=== PATIENT | female | born 1975 | race African-American/Black ===

== ENCOUNTER 2017-02-01 19:24 | Emergency (ER) | payer SELFPAY ==
--- NOTE | 2017-02-01 22:37 | ER Document Report ---
ED Medical Screen (RME) - General Chief Complaint: Foreign Body in Vagina Stated Complaint: VAGINAL ISSUE Mode of Arrival: Ambulatory Information source: Patient Notes: Patient presents to the emergency department with complaints of tampon stuck since Wednesday. She also reports neck pain on and off for the past couple months. She reports her neck was bothering her so much today that she couldn't work. TRAVEL OUTSIDE OF THE [place] IN LAST 30 DAYS: No - Related Data Allergies/Adverse Reactions: morphine [Morphine] Allergy (Verified 11/06/15 13:50) tramadol [Tramadol] Adverse Reaction (Verified 11/06/15 13:50) tramadol HCl [From Ultram] Adverse Reaction (Verified 11/06/15 13:50) Past Medical History Pulmonary Medical History: Reports: Hx Bronchitis Neurological Medical History: Reports: Hx Migraine Renal/ Medical History: Reports: Hx Kidney Stones. Denies: Hx Peritoneal Dialysis GI Medical History: Reports: Hx Gastroesophageal Reflux Disease Psychiatric Medical History: Reports: Hx Anxiety, Hx Depression Past Surgical History: Reports: Hx Section - x1, Hx Gynecologic Surgery - btl, Hx Inguinal Hernia, Hx Neurologic Surgery - pituitary tumor non cancer, Hx Oral Surgery, Hx Tubal Ligation - Immunizations Immunizations up to date: No Hx Diphtheria, Pertussis, Tetanus Vaccination: Yes Physical Exam - Vital signs Vitals: Temp Pulse BP Pulse Ox 98.6 F 90 144/92 H 94 02/01/17 20:34 02/01/17 20:34 02/01/17 20:34 02/01/17 20:34 Course - Vital Signs Vital signs: Temp Pulse Resp BP Pulse Ox 98.6 F 90 144/92 H 94 02/01/17 20:34 02/01/17 20:34 02/01/17 20:34 02/01/17 20:34
--- NOTE | 2017-02-02 01:06 | ER Document Report ---
HPI - HPI Patient complains to provider of: tampon stuck in vagina Onset: Other - wednesday Onset/Duration: Persistent Pain Level: 4 Context: Patient presents emergency department with reports that she has had a tampon stuck in her vagina since Wednesday. Patient also complains of neck pain pain with movement. She reports that she's had this neck pain on off for the last couple months. Denies trauma. Reports it hurt so bad today she could not go to work. Denies other symptoms such as fever vomiting diarrhea. Associated Symptoms: None Exacerbated by: Movement Relieved by: Denies Similar symptoms previously: Yes Recently seen / treated by doctor: No - REPRODUCTIVE LMP: now Reproductive: DENIES: : - DERM Skin Color: Normal Past Medical History - General Information source: Patient Last Menstrual Period: last week - Social History Smoking Status: Current Every Day Smoker Cigarette use (# per day): Yes Chew tobacco use (# tins/day): No Frequency of alcohol use: None Drug Abuse: None Occupation: [employer] Lives with: Family Family History: Arthritis, CAD, DM, Hyperlipidemia, Hypertension, Thyroid Disfunction Patient has suicidal ideation: No Patient has homicidal ideation: No Pulmonary Medical History: Reports: Hx Bronchitis Neurological Medical History: Reports: Hx Migraine Renal/ Medical History: Reports: Hx Kidney Stones. Denies: Hx Peritoneal Dialysis GI Medical History: Reports: Hx Gastroesophageal Reflux Disease Psychiatric Medical History: Reports: Hx Anxiety, Hx Depression Past Surgical History: Reports: Hx Section - x1, Hx Gynecologic Surgery - btl, Hx Inguinal Hernia, Hx Neurologic Surgery - pituitary tumor non cancer, Hx Oral Surgery, Hx Tubal Ligation - Immunizations Immunizations up to date: No Hx Diphtheria, Pertussis, Tetanus Vaccination: Yes Vertical Provider Document - CONSTITUTIONAL Agree With Documented VS: Yes Exam Limitations: No Limitations General Appearance: WD/WN, No Apparent Distress - INFECTION CONTROL TRAVEL OUTSIDE OF THE [place] IN LAST 30 DAYS: No - HEENT HEENT: Atraumatic, Normocephalic - NECK Neck: Normal Inspection - No obvious injury no erythema warmth or swelling good distal movement and sensation no weakness. negative: Lymphadenopathy-Left, Lymphadenopathy-Right - RESPIRATORY Respiratory: Breath Sounds Normal, No Respiratory Distress O2 Sat by Pulse Oximetry: 94 - CARDIOVASCULAR Cardiovascular: Regular Rate - GI/ABDOMEN Gastrointestinal: Abdomen Soft, Abdomen Non-Tender - REPRODUCTIVE Female Genitalia: Normal Inspection - MUSCULOSKELETAL/EXTREMETIES Musculoskeletal/Extremeties: ESSIE MAY - NEURO Level of Consciousness: Awake, Alert Motor/Sensory: No Motor Deficit - DERM Integumentary: Warm, Dry, No Rash Course - Re-evaluation Re-evalutation: 02/02/17 Patient was instructed that no foreign body was noted during her pelvic exam but she is to monitor symptoms such as vaginal discharge pain fever. She was instructed to return the emergency department should the symptoms began. She was also instructed to follow up with her primary care provider or [facility] for recheck. Patient was also instructed on her cervical muscle strain. She reports that she works at the [employer] and is frequently looking down at the [employer] register. She's been working there for 4 months. This pain started approximately 2 months ago. Patient was instructed on ergonomics and importance of proper posture. She verbalized understanding to all instructions. - Vital Signs Vital signs: Temp Pulse Resp BP Pulse Ox 98.6 F 90 144/92 H 94 02/01/17 20:34 02/01/17 20:34 02/01/17 20:34 02/01/17 20:34 Procedures - Pelvic Exam Pelvic exam Cultures obtained: No Wet prep obtained: No Herpes culture obtained: No Foreign body removed: No Bimanual exam performed: Yes Discharge - Discharge Clinical Impression: Neck pain, acute, Elevated blood pressure reading Condition: Stable Disposition: HOME, SELF-CARE Instructions: Neck Injury (Cervical Strain) ([facility]), Oral Narcotic Medication ( [facility]), Ibuprofen (General) ([facility]), Muscle Relaxers ([facility]) Additional Instructions: *You have been evaluated for neck pain *Rest/ alternate ice and warm packs to neck *Follow up with a primary care provider within one week for recheck *Adjust your workplace to ensure it is ergonomically appropriate for you *Take medication as prescribed *Return to ED for worsening condition, changes, needs Prescriptions: Cyclobenzaprine HCl [Flexeril 5 mg Tablet] 5 mg PO TID #15 tablet Ibuprofen [Motrin 800 mg Tablet] 800 mg PO TID #30 tablet Forms: Elevated Blood Pressure, Return to Work
[2017-02-02] MEDS ORDERED: HYDROCODONE/ACETAMINOPHEN 5-325 MG 6 TAB/DSPK PO PRN (01:33)
[2017-02-02 02:20] VITALS: BP 137/92
== END 2017-02-02 02:00 | disposition home or self-care (01) ==
LOC: ER 19:24
DX: M54.2 Cervicalgia (principal); R03.0 Elevated blood-pressure reading, without diagnosis of hypertension; T19.2XXA Foreign body in vulva and vagina, initial encounter; F17.210 Nicotine dependence, cigarettes, uncomplicated
CPT/HCPCS: 99283

== ENCOUNTER 2017-02-25 11:43 | Emergency (ER) | payer SELFPAY ==
--- NOTE | 2017-02-25 12:30 | ER Document Report ---
ED GI/ - General Time seen by provider: 12:27 Mode of Arrival: Ambulatory Information source: Patient TRAVEL OUTSIDE OF THE [place] IN LAST 30 DAYS: No - HPI Onset: Other - see HPI note Associated symptoms: Dysuria, Urinary frequency Similar symptoms previously: Yes Recently seen / treated by doctor: No - General Chief Complaint: Pain With Urination Stated Complaint: PAINFUL AND FREQUENT URINATION Notes: Patient has a 41-year-old female presenting to the emergency department with complaints of painful and frequent urination. Patient states she took a home urine test and believes that she has bacterial vaginosis. Patient has had a UTI in the past but not for multiple years. Patient states her legs also hurt. Patient has had these symptoms for 3 weeks now. Patient does not have a primary care physician. (JULI SOTO) - Related Data Allergies/Adverse Reactions: morphine [Morphine] Allergy (Verified 02/25/17 12:27) tramadol [Tramadol] Adverse Reaction (Verified 02/25/17 12:27) tramadol HCl [From Ultram] Adverse Reaction (Verified 02/25/17 12:27) Past Medical History - General Information source: Patient - Social History Smoking Status: Unknown if Ever Smoked Family History: Arthritis, CAD, DM, Hyperlipidemia, Hypertension, Thyroid Disfunction Patient has suicidal ideation: No Patient has homicidal ideation: No Pulmonary Medical History: Reports: Hx Bronchitis Neurological Medical History: Reports: Hx Migraine Renal/ Medical History: Reports: Hx Kidney Stones GI Medical History: Reports: Hx Gastroesophageal Reflux Disease Psychiatric Medical History: Reports: Hx Anxiety, Hx Depression Past Surgical History: Reports: Hx Section - x1, Hx Gynecologic Surgery - btl, Hx Inguinal Hernia, Hx Neurologic Surgery - pituitary tumor non cancer, Hx Oral Surgery, Hx Tubal Ligation - Immunizations Immunizations up to date: No Hx Diphtheria, Pertussis, Tetanus Vaccination: Yes Review of Systems - Review of Systems Constitutional: No symptoms reported EENT: No symptoms reported Cardiovascular: No symptoms reported Respiratory: No symptoms reported Gastrointestinal: No symptoms reported Genitourinary: See HPI, Burning, Frequency Female Genitourinary: See HPI, Vaginal discharge Musculoskeletal: No symptoms reported Skin: No symptoms reported Hematologic/Lymphatic: No symptoms reported Neurological/Psychological: No symptoms reported -: Yes All other systems reviewed and negative Physical Exam - Vital signs Interpretation: Normal - General General appearance: Appears well, Alert In distress: Mild - HEENT Head: Normocephalic, Atraumatic Eyes: Normal Pupils: PERRL Mucous membranes: Moist - Respiratory Respiratory status: No respiratory distress Chest status: Nontender Breath sounds: Normal Chest palpation: Normal - Cardiovascular Rhythm: Regular Heart sounds: Normal auscultation Murmur: No - Abdominal Inspection: Normal Distension: No distension Bowel sounds: Normal Tenderness: Nontender Organomegaly: No organomegaly - Back Back: Normal, Nontender - Extremities General upper extremity: Normal inspection, Normal ROM, Normal strength General lower extremity: Normal inspection, Normal ROM, Normal strength - Neurological Neuro grossly intact: Yes Cognition: Normal Orientation: AAOx4 [place] Coma Scale Eye Opening: Spontaneous [place] Coma Scale Verbal: Oriented [place] Coma Scale Motor: Obeys Commands [facility] [place] Coma Scale Total: 15 Speech: Normal - Psychological Associated symptoms: Normal affect, Normal mood - Skin Skin Temperature: Warm Skin Moisture: Dry Course - Re-evaluation Re-evalutation: 02/25/17 13:12 Patient presents emergency Department with dysuria. Said she thinks she has another urinary tract infection. Has a 2 to touch can't be she sexually active but not denies any vaginal discharge gonorrhea or chlamydia. She said she's had bacterial vaginosis in the past and it smells like that. On exams well-appearing nontoxic no acute distress no acute abdominal findings guarding rebound rigidity or flank tenderness urinalysis negative for infection when ahead and treat her for bacterial vaginosis of health department and discussed reasons for ED return sooner no emergent need for CT scan or further testing at this time. 02/25/17 13:21 (MARY MONTESINOS) - Vital Signs Vital signs: Temp Pulse Resp BP Pulse Ox 98.0 F 85 14 125/80 100 02/25/17 13:24 02/25/17 13:24 02/25/17 13:24 02/25/17 13:24 02/25/17 13:24 - Laboratory Laboratory results interpreted by me: 02/25/17 12:35 Urine Blood MODERATE H Discharge - Discharge Clinical Impression: Dysuria, history of bacterial vaginosis Condition: Stable Disposition: HOME, SELF-CARE Additional Instructions: You are experiencing burning with urination and order with history of bacterial vaginosis. Treatment she will or bacterial vaginosis. We will need you to follow up with the health department your urine is negative for infection. Prescriptions: Metronidazole [Flagyl 500 mg Tablet] 500 mg PO Q6H #28 tablet Scribe Attestation: 02/25/17 13:11 I personally performed the services described in the documentation reviewed the documentation recorded by my scribe in my presence and it accurately and completely records my words and actions (MARY MONTESINOS) Scribe Documentation - Scribe Written by Scribe:: Juli Soto 02/25/17 13:30 acting as scribe for :: Horace
[2017-02-25 12:46] LABS: APPEARANCE,URINE CLEAR; BILIRUBIN,URINE NEGATIVE (NEGATIVE); GLUCOSE, URINE NEGATIVE (NEGATIVE); KETONES,URINE NEGATIVE (NEGATIVE); LEUKOCYTE ESTERASE,URINE NEGATIVE (NEGATIVE); NITRITE,URINE NEGATIVE (NEGATIVE); PROTEIN,URINE NEGATIVE (NEGATIVE); URINE SPECIFIC GRAVITY 1.003; UROBILINOGEN,URINE NEGATIVE mg/dL (<2.0)
[2017-02-25 13:27] VITALS: BP 125/80
== END 2017-02-25 13:26 | disposition home or self-care (01) ==
LOC: ER 11:43
DX: R30.0 Dysuria (principal); R35.0 Frequency of micturition
CPT/HCPCS: 81001; 81025; 99283

== ENCOUNTER 2017-10-14 10:22 | Emergency (ER) | payer SELFPAY ==
--- NOTE | 2017-10-14 11:20 | ER Document Report ---
ED General - General Chief Complaint: Pain With Urination Stated Complaint: URINARY PROBLEMS Time Seen by Provider: 10/14/17 11:15 Mode of Arrival: Ambulatory Information source: Patient Notes: Patient is a 41-year-old female who presents with 2 week history of dysuria, urinary frequency and vaginal discharge that she describes as thin and watery. She endorses associated backache and lower abdominal pain but denies any fever or chills, nausea, vomiting, diarrhea. She denies any abnormal vaginal bleeding. States her last menstrual period was 2 weeks ago and these are normal in nature. She has tried Azo for 4 days which she states helps while she is taking it but when she stops the discomfort returns. She has tried Tylenol and Motrin with no relief. Does have a history of bacterial vaginosis and states this feels the same. TRAVEL OUTSIDE OF THE [place] IN LAST 30 DAYS: No - Related Data Allergies/Adverse Reactions: morphine [Morphine] Allergy (Verified 10/14/17 10:23) tramadol [Tramadol] Adverse Reaction (Verified 10/14/17 10:23) tramadol HCl [From Ultram] Adverse Reaction (Verified 10/14/17 10:23) Past Medical History - Social History Smoking Status: Current Every Day Smoker Chew tobacco use (# tins/day): No Frequency of alcohol use: Occasional Drug Abuse: None Family History: Arthritis, CAD, DM, Hyperlipidemia, Hypertension, Thyroid Disfunction Patient has suicidal ideation: No Patient has homicidal ideation: No Pulmonary Medical History: Reports: Hx Bronchitis Neurological Medical History: Reports: Hx Migraine Renal/ Medical History: Reports: Hx Kidney Stones. Denies: Hx Peritoneal Dialysis GI Medical History: Reports: Hx Gastroesophageal Reflux Disease Psychiatric Medical History: Reports: Hx Anxiety, Hx Depression Past Surgical History: Reports: Hx Section - x1, Hx Gynecologic Surgery - btl, Hx Inguinal Hernia, Hx Neurologic Surgery - pituitary tumor non cancer, Hx Oral Surgery, Hx Tubal Ligation - Immunizations Immunizations up to date: No Hx Diphtheria, Pertussis, Tetanus Vaccination: Yes Review of Systems - Review of Systems Constitutional: See HPI EENT: No symptoms reported Cardiovascular: No symptoms reported Respiratory: No symptoms reported Gastrointestinal: No symptoms reported Genitourinary: See HPI Female Genitourinary: See HPI Musculoskeletal: No symptoms reported Skin: No symptoms reported Hematologic/Lymphatic: No symptoms reported Neurological/Psychological: No symptoms reported Physical Exam - Vital signs Vitals: Temp Pulse Resp BP Pulse Ox 97.9 F 85 16 147/94 H 100 10/14/17 10:47 10/14/17 10:47 10/14/17 10:47 10/14/17 10:47 10/14/17 10:47 - Notes Notes: PHYSICAL EXAM: CONSTITUTIONAL: Alert and oriented, well-appearing and in no acute distress. HENT: Normocephalic, atraumatic. Oropharynx clear without erythema, tonsilar exudate or malocclusion. Trachea midline. Uvula midline. Moist mucous membranes. EYES: Pupils equal round and reactive to light, EOM intact. Sclera anicteric, conjunctiva are normal. No entrapment. NECK: supple without lymphadenopathy. No midline tenderness or paraspinous muscle spasms. HEART: Regular rate and rhythm without murmurs. LUNGS: CTAB and equal. No wheezes, rales or rhonchi. GI: Normactive bowel sounds. TTP in suprapubic region, non-distended. No organomegaly. no CVAT. Negative Dickinson sign, negative McBurney's point tenderness. No rebound or guarding. No CVAT. MANAGER SURGERY: External exam normal. No rashes or lesions. Mild thin vaginal discharge, no vaginal bleeding. Cervix without lesions. No cervical motion tenderness. BACK: nontender, no paraspinous spasm. EXTREMITIES: Normal range of motion, no pitting edema. No cyanosis. Cap Refill < 3 seconds. NEURO: Cranial nerves grossly intact. Normal sensory/motor exams. PSYCH: Normal mood, normal affect. SKIN: Warm and dry. Normal turgor. No rashes or lesions noted. Course - Re-evaluation Re-evalutation: 10/14/17 12:37 Patient seen and examined. Patient is alert and oriented and speaking in full sentences without difficulty. She is afebrile and well-hydrated. Abdominal exam nonsurgical. No CVA tenderness. Pelvic exam without copious discharge. Wet prep shows 1+ WBC and no trichomonas. Gonorrhea and chlamydia pending. Patient was treated for gonorrhea and chlamydia per her request. Urinalysis did not show any signs of infectious. Patient states she has had bacterial vaginosis in the past and this feels similar so she will be treated accordingly. She will also be given a prescription for Pyridium. Low suspicion at this time for pyelonephritis, nephrolithiasis, sepsis or any other emergent condition at this time. At this time, will discharge with return precautions and follow-up recommendations. Verbal discharge instructions given at the bedside and opportunity for questions given. Medication warnings reviewed. Patient is in agreement with this plan and has verbalized understanding of return precautions and the need for primary care follow-up in the next 24-72 hours. - Vital Signs Vital signs: Temp Pulse Resp BP Pulse Ox 97.9 F 85 16 147/94 H 100 10/14/17 10:47 10/14/17 10:47 10/14/17 10:47 10/14/17 10:47 10/14/17 10:47 - Laboratory Laboratory results interpreted by me: 10/14/17 10:50 Urine Urobilinogen 2.0 H Procedures - Pelvic Exam Pelvic exam Cultures obtained: Yes Wet prep obtained: Yes Herpes culture obtained: No POC sent to lab: Yes Foreign body removed: No Witnessed by: tech Notes: 10/14/17 13:39 no vaginal bleeding, scant vaginal discharge Discharge - Discharge Clinical Impression: Bacterial vaginosis, Urinary frequency, Dysuria Condition: Stable Disposition: HOME, SELF-CARE Additional Instructions: VAGINITIS: Your exam shows that you have vaginitis, a vaginal infection. The infection can be caused by a many different organisms, including trichomonas or Gardnerella. The usual symptoms are vaginal irritation and discharge. The treatment is usually antibiotics such as Flagyl. Laboratory tests can determine which germ is responsible. Use the medication as prescribed. Because this infection can be transmitted sexually, your sexual partner may need to be checked and treated also. If your physician has not discussed this with you, please check before resuming sexual relations. If a culture shows gonorrhea or chlamydia, the infection must be reported to the health department. Call the doctor if you develop pelvic pain, fever, or problems with urination, or if you don't improve as expected. VAGINOSIS, BACTERIAL: Your exam shows you have bacterial vaginosis. This condition is due to an overgrowth of bacteria in the vagina. Symptoms may include vaginal itching or pain, a smelly discharge, and sometimes burning with urination. Normally this is not transmitted by sexual contact. Vaginosis can be treated with oral or topical antibiotics. Metronidazole ( Flagyl) pills are usually effective. Topical vaginal creams include Cleocin and Metro-Gel. You should avoid sexual contact until your symptoms are all better. Call the doctor if you develop pelvic pain, fever, or problems with urination, or if you don't improve as expected. ANTIBIOTIC THERAPY: You have been given an antibiotic prescription. It's important that you take all the medication, unless instructed otherwise by your physician. Failure to complete the entire course can result in relapse of your condition. Common side effects of antibiotics include nausea, intestinal cramping, or diarrhea. Women may develop vaginal yeast infections, and babies can get yeast (thrush) in the mouth following the use of antibiotics. Contact your physician if you develop significant side effects from this medication. Allergy to this antibiotic can result in hives, wheezing, faintness, or itching. If symptoms of allergy occur, stop the medication and call the doctor. METRONIDAZOLE: Metronidazole (Flagyl) has been prescribed. This medication is used to kill a type of bacteria called anaerobes, and protozoan parasites such as trichomonas and Giardia. Flagyl often causes a metallic taste in the mouth and mild nausea. Do not use alcohol in any form with Flagyl (including alcohol in medication elixirs). Flagyl interacts with alcohol to cause flushing, palpitations, headache, stomach cramps, and vomiting. Do not use Flagyl if you are taking Antabuse (disulfiram). Call the doctor at once if you develop rash, shortness of breath, itching, or lightheadedness. FOLLOW-UP CARE: If you have been referred to a physician for follow-up care, call the physician s office for an appointment as you were instructed or within the next two days. If you experience worsening or a significant change in your symptoms, notify the physician immediately or return to the Emergency Department at any time for re-evaluation. Prescriptions: Metronidazole 500 mg PO BID 7 Days tablet Phenazopyridine HCl [Pyridium] 100 mg PO BID #10 tablet
[2017-10-14 11:52] LABS: APPEARANCE,URINE CLEAR; BILIRUBIN,URINE NEGATIVE (NEGATIVE); GLUCOSE, URINE NEGATIVE (NEGATIVE); KETONES,URINE NEGATIVE (NEGATIVE); LEUKOCYTE ESTERASE,URINE NEGATIVE (NEGATIVE); NITRITE,URINE NEGATIVE (NEGATIVE); PROTEIN,URINE NEGATIVE (NEGATIVE)
[2017-10-14] MEDS ORDERED: AZITHROMYCIN 200 MG/5 ML SUSP 30 ML PO ONE (13:08)
[2017-10-14] MEDS ORDERED: LIDOCAINE 1% INJ-PF (10 MG/ML) 30 ML SDV INFIL ONE (13:09)
[2017-10-14] MEDS ORDERED: CEFTRIAXONE INJ 250 MG VIAL IM ONE (13:09)
[2017-10-14 13:57] VITALS: BP 145/94
== END 2017-10-14 13:57 | disposition home or self-care (01) ==
LOC: ER 10:22
DX: N76.0 Acute vaginitis (principal); B96.89 Other specified bacterial agents as the cause of diseases classified elsewhere; R30.0 Dysuria; R35.0 Frequency of micturition; F17.200 Nicotine dependence, unspecified, uncomplicated; Z88.5 Allergy status to narcotic agent
CPT/HCPCS: 99283; 96372; 87210; 81001; 87491; 87591; J3490; J0696; Q0144

== ENCOUNTER 2018-01-01 17:51 | Emergency (ER) | payer SELFPAY ==
--- NOTE | 2018-01-01 18:37 | ER Document Report ---
HPI - HPI Patient complains to provider of: vaginal pain Pain Level: 4 Context: Patient is a 42 year old female who presents to the ED complaining of vaginal irritation since her period ended she states that she frequently gets bacterial vaginosis over the past year since she started using condoms and lubrication with a new boyfriend. She states that they always use protection denies any pelvic pain she admits to vaginal discharge with odor and irritation with intercourse. Otherwise healthy female - REPRODUCTIVE Reproductive: DENIES: : Past Medical History - Social History Smoking Status: Never Smoker Family History: Arthritis, CAD, DM, Hyperlipidemia, Hypertension, Thyroid Disfunction Pulmonary Medical History: Reports: Hx Bronchitis Neurological Medical History: Reports: Hx Migraine Renal/ Medical History: Reports: Hx Kidney Stones. Denies: Hx Peritoneal Dialysis GI Medical History: Reports: Hx Gastroesophageal Reflux Disease Psychiatric Medical History: Reports: Hx Anxiety, Hx Depression Past Surgical History: Reports: Hx Section - x1, Hx Gynecologic Surgery - btl, Hx Inguinal Hernia, Hx Neurologic Surgery - pituitary tumor non cancer, Hx Oral Surgery, Hx Tubal Ligation - Immunizations Immunizations up to date: No Hx Diphtheria, Pertussis, Tetanus Vaccination: Yes Vertical Provider Document - CONSTITUTIONAL Agree With Documented VS: Yes Notes: PHYSICAL EXAM GENERAL: Alert, interacts well. ABDOMEN: Soft, nondistended, nontender. No guarding, rebound, or rigidity.. Bowel sounds present in all 4 quadrants. FEMALE : Normal external exam. No evidence of lesions, lacerations, bruising or vesicles. Speculum exam normal cervix closed. Evidence of thick white vaginal discharge with odor No evidence of lesions. No vaginal bleeding. Bimanual exam normal no cervical motion tenderness. No adnexal mass or adnexal tenderness. NEUROLOGICAL: Alert and oriented x4. Normal speech. PSYCH: Normal affect, normal mood. SKIN: Warm, dry, normal turgor. No rashes or lesions noted. - INFECTION CONTROL TRAVEL OUTSIDE OF THE [place] IN LAST 30 DAYS: No - RESPIRATORY O2 Sat by Pulse Oximetry: 100 Course - Re-evaluation Re-evalutation: 01/01/18 19:06 Patient is a 42-year-old female is hemodynamically stable, no acute distress afebrile. Presentation is consistent with bacterial vaginosis without evidence of trichomonas, yeast. Chlamydia and gonorrhea pending. Patient declining treatment at this time. Will treat with p.o. clindamycin and instruction to follow-up with [facility]. Otherwise discussed home adjustments to help prevent BV. - Vital Signs Vital signs: Temp Pulse Resp BP Pulse Ox 98.8 F 77 18 160/99 H 100 01/01/18 18:04 01/01/18 18:04 01/01/18 18:04 01/01/18 18:04 01/01/18 18:04 Discharge - Discharge Clinical Impression: Bacterial vaginosis, Pre-hypertension Condition: Good Disposition: HOME, SELF-CARE Instructions: Vaginosis, Bacterial ([facility]) Prescriptions: Clindamycin HCl 300 mg PO BID #14 capsule Forms: Elevated Blood Pressure Referrals: [facility] [NO LOCAL MD] - Follow up as needed [facility] [NO LOCAL MD] - Follow up in 1 week
[2018-01-01 18:56] LABS: BACTERIA (WET MOUNT) 3+ BACTERIA SEEN; T.VAGINALIS (WET MOUNT) NO TRICHOMONAS SEEN; WBCS (WET MOUNT) 1+ WBCS SEEN; YEAST (WET MOUNT) NO YEAST SEEN
[2018-01-01] MEDS ORDERED: CLINDAMYCIN HCL 150 MG CAPSULE PO ONE (19:05)
[2018-01-01 19:06] LABS: APPEARANCE,URINE CLEAR; BILIRUBIN,URINE NEGATIVE (NEGATIVE); COLOR,URINE STRAW; GLUCOSE, URINE NEGATIVE (NEGATIVE); KETONES,URINE NEGATIVE (NEGATIVE); LEUKOCYTE ESTERASE,URINE NEGATIVE (NEGATIVE); NITRITE,URINE NEGATIVE (NEGATIVE); PROTEIN,URINE NEGATIVE (NEGATIVE); URINE SPECIFIC GRAVITY 1.005; UROBILINOGEN,URINE NEGATIVE mg/dL (<2.0)
[2018-01-01 19:23] VITALS: BP 150/103
[2018-01-01 20:19] LABS: CHLAM PCR NOT DETECTED (NOT DETECT); GON PCR NOT DETECTED (NOT DETECT)
== END 2018-01-01 19:23 | disposition home or self-care (01) ==
LOC: ER 17:51
DX: N76.0 Acute vaginitis (principal); B96.89 Other specified bacterial agents as the cause of diseases classified elsewhere; R03.0 Elevated blood-pressure reading, without diagnosis of hypertension
CPT/HCPCS: 81001; 81025; 87210; 87491; 87591; 99283

== ENCOUNTER → 2018-08-19 | Outpatient (CLI) | payer BC ==
--- NOTE | 2018-08-19 13:53 | RADIOLOGY REPORT (SQ) ---
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 TECHNIQUE: Multiplanar imaging includes non-contrasted T1, T2, FLAIR, diffusion with ADC map and pos t gadolinium contrast T1 sequences. Thin sections through the pituitary fossa pre and post contrast. Images stored on PACS. CONTRAST TYPE AND DOSE: 10 mL Dotarem. RENAL FUNCTION: GFR > 60. LIMITATIONS: None. FINDINGS: ANATOMY: No anomalies. Normal vascular flow voids. CSF SPACES: Normal in size and contour. No hemorrhage. PITUITARY FOSSA: Mild asymmetry with some susceptibility artifact to left of midline. No mass identi fied. Infundibulum midline. CEREBRUM: Sulci and gyri normal in size and contour. No evidence of hemorrhage, mass, or extraaxial fluid collection. No abnormal enhancement post contrast. POSTERIOR FOSSA: No signal alteration. No hemorrhage. No edema, masses, or mass effect. Internal aud itory canals, cerebello-pontine angles, mastoids normal. No enhancing lesions. ORBITS: No masses. Globes normal. PARANASAL SINUSES: No fluid levels. Mucosa normal. OTHER: No other significant finding. IMPRESSION: Postsurgical changes. No evidence of recurrent pituitary mass. TECHNICAL DOCUMENTATION: JOB ID: [id number] [employer]- All Rights Reserved Reading location - IP/workstation name: [email or web address]
--- NOTE | 2018-08-19 15:41 | RADIOLOGY REPORT (SQ) ---
EXAM DESCRIPTION: BARIUM SWALLOW ESOPHAGUS COMPLETED DATE/TIME: 08/19/2018 11:09 am REASON FOR STUDY: DYSPHAGIA (R13.10) D35.2 BENIGN NEOPLASM OF PITUITARY GLAND R13.10 DYSPHAGIA, UN SPECIFIED COMPARISON: None. TECHNIQUE: Under fluoroscopic guidance, patient ingested effervescent granules followed by thick and thin barium. Fluoroscopic spot images and routine radiographic images acquired and stored on PACS. 12 MM BARIUM TABLET GIVEN: No, patient states she is unable to take tablets whole. LIMITATIONS: None. FLUOROSCOPY TIME: FLUORO TIME: 1.20 minutes 7 images saved to PACS. FINDINGS: NEUROMUSCULAR COORDINATION OF SWALLOW: Normal. No aspiration. ESOPHAGEAL MOTILITY: Normal peristalsis. No esophageal spasm. ESOPHAGEAL MUCOSA: Normal mucosa without masses or ulceration. GASTRO-ESOPHAGEAL JUNCTION: No hiatal hernia. Moderate gastroesophageal reflux was seen. NON-GI TRACT STRUCTURES: No significant finding. OTHER: No other significant finding. IMPRESSION: MODERATE GASTROESOPHAGEAL REFLUX. OTHERWISE UNREMARKABLE STUDY. . RECOMMENDATION: NONE COMMENT: NONE Quality ID 145: Final reports for procedures using fluoroscopy that document radiation exposure asya alejandra, or exposure time and number of fluorographic images (if radiation exposure indices are not avail able) TECHNICAL DOCUMENTATION: JOB ID: [id number] [employer]- All Rights Reserved Reading location - IP/workstation name: [email or web address]
== END ==
LOC: RAD 09:15
PROVIDERS: ATTEND Internal Medicine
DX: D35.2 Benign neoplasm of pituitary gland (principal); R13.10 Dysphagia, unspecified
CPT/HCPCS: 82565; 70553; 74220; A9576

== ENCOUNTER 2018-09-01 15:49 | Emergency (ER) | payer BC ==
[2018-09-01 16:12] VITALS: BP 145/99
--- NOTE | 2018-09-01 18:23 | RADIOLOGY REPORT (SQ) ---
EXAM DESCRIPTION: KNEE RIGHT 4 VIEWS COMPLETED DATE/TIME: 09/01/2018 5:55 pm REASON FOR STUDY: medial knee pain x8 weeks COMPARISON: None. NUMBER OF VIEWS: Four views. TECHNIQUE: AP, lateral, and both oblique radiographic images acquired of the right knee. LIMITATIONS: None. FINDINGS: MINERALIZATION: Normal. BONES: No acute fracture or dislocation. No worrisome bone lesions. JOINT: Small suprapatellar joint effusion. SOFT TISSUES: No soft tissue swelling. No radio-opaque foreign body. OTHER: No other significant finding. IMPRESSION: Small suprapatellar joint effusion. No acute fracture or dislocation of the right knee. TECHNICAL DOCUMENTATION: JOB ID: [id number] [employer]- All Rights Reserved Reading location - IP/workstation name: [email or web address]
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
== END 2018-09-01 19:09 | disposition home or self-care (01) ==
LOC: ER 15:49
DX: M25.561 Pain in right knee (principal); F17.200 Nicotine dependence, unspecified, uncomplicated
CPT/HCPCS: 99283; 73564; L1830

== ENCOUNTER → 2018-09-29 | Day surgery (SDC) | payer BC ==
[~2018-09-29] MED LIST: LIDOCAINE 2% JELLY 5 ML TUBE ONE
== END ==
LOC: END 09:19
PROVIDERS: ATTEND Internal Medicine Gastroenterology
DX: R13.12 Dysphagia, oropharyngeal phase (principal)
CPT/HCPCS: 91010

== ENCOUNTER 2020-11-05 14:32 | Emergency (ER) | payer BC ==
--- NOTE | 2020-11-05 15:50 | ER Document Report ---
ED Medical Screen (RME) - General Chief Complaint: Chest Pain Stated Complaint: CHEST PAIN Time Seen by Provider: 11/05/20 15:40 Primary Care Provider: CHRISTAL ROSADO MD [Primary Care Provider] - Follow up as needed TRAVEL OUTSIDE OF THE [place] IN LAST 30 DAYS: No - HPI Notes: 11/05/20 15:47 44-year-old female with a history of hypertension presents to the emergency room today for chest states denies that radiates to her back that started around 730 this morning with shortness of breath that has become progressively worse. Patient states she woke up because she had to urinate, she felt the chest pressure, she checked her blood pressure and it was 200/119, which made her nervous. Patient states that she has had palpitations since before , has not had it checked out by a medical provider. Patient smokes 2 packs a day for last 20 years, she states she has had shortness of breath for the last 3 months but since her chest pain started has become worse. Denies any nausea, vomiting. Last menstrual cycle 10/15/2020. I have greeted and performed a rapid initial assessment of this patient. A comprehensive ED assessment and evaluation of the patient, analysis of test results and completion of the medical decision making process will be conducted by additional ED providers. PHYSICAL EXAMINATION: GENERAL: Well-appearing, well-nourished and in no acute distress. HEAD: Atraumatic, normocephalic. EYES: Pupils equal round extraocular movements intact, conjunctiva are normal. NECK: Normal range of motion CV: Tachycardia LUNGS: No respiratory distress The patient was evaluated during a global COVID-19 pandemic and that diagnosis was suspected/considered upon their initial presentation. Their evaluation, treatment and testing was consistent with current guidelines for patients who present with complaints or symptoms and may be related to COVID-19. - Related Data Allergies/Adverse Reactions: morphine [Morphine] Allergy (Verified 09/01/18 15:50) tramadol [Tramadol] Adverse Reaction (Verified 09/01/18 15:50) tramadol HCl [From Ultram] Adverse Reaction (Verified 09/01/18 15:50) Past Medical History Pulmonary Medical History: Reports: Hx Bronchitis Neurological Medical History: Reports: Hx Migraine Renal/ Medical History: Reports: Hx Kidney Stones. Denies: Hx Peritoneal Dialysis GI Medical History: Reports: Hx Gastroesophageal Reflux Disease Psychiatric Medical History: Reports: Hx Anxiety, Hx Depression Past Surgical History: Reports: Hx Abdominal Surgery - inguinal left hernia, Hx Section - x1, Hx Gynecologic Surgery - btl, Hx Inguinal Hernia, Hx Neurologic Surgery - pituitary tumor non cancer, Hx Oral Surgery, Hx Tubal Ligation - Immunizations Immunizations up to date: No Hx Diphtheria, Pertussis, Tetanus Vaccination: Yes Physical Exam - Vital signs Vitals: Temp Pulse Resp BP Pulse Ox 98.6 F 106 H 20 186/114 H 100 11/05/20 14:47 11/05/20 14:47 11/05/20 14:47 11/05/20 14:47 11/05/20 14:47 Course - Vital Signs Vital signs: Temp Pulse Resp BP Pulse Ox 98.6 F 106 H 20 186/114 H 100 11/05/20 14:47 11/05/20 14:47 11/05/20 14:47 11/05/20 14:47 11/05/20 14:47 Doctor's Discharge - Discharge Referrals: CHRISTAL ROSADO MD [Primary Care Provider] - Follow up as needed
--- NOTE | 2020-11-05 16:30 | RADIOLOGY REPORT (SQ) ---
EXAM DESCRIPTION: CHEST SINGLE VIEW IMAGES COMPLETED DATE/TIME: 11/05/2020 4:23 pm REASON FOR STUDY: chest pain radiates to back COMPARISON: 04/08/2014 EXAM PARAMETERS: NUMBER OF VIEWS: One view. TECHNIQUE: Single frontal radiographic view of the chest acquired. RADIATION DOSE: NA LIMITATIONS: None. FINDINGS: LUNGS AND PLEURA: No opacities, masses or pneumothorax. No pleural effusion. MEDIASTINUM AND HILAR STRUCTURES: No masses. Contour normal. HEART AND VASCULAR STRUCTURES: Heart normal in size. Normal vasculature. BONES: No acute findings. HARDWARE: None in the chest. OTHER: No other significant finding. IMPRESSION: NO ACUTE RADIOGRAPHIC FINDING IN THE CHEST. TECHNICAL DOCUMENTATION: JOB ID: [id number] 2010 [employer]- All Rights Reserved Reading location - IP/workstation name: [email or web address]
[2020-11-05 18:05] LABS: ABSOLUTE MONOCYTES (AUTO) 0.5 10^3/uL (0.1-1.4); ABSOLUTE NEUT (AUTO) 2.4 10^3/uL (1.7-8.2); BASOPHILS % (AUTO) 0.5 % (0-2); EOSINOPHILS % (AUTO) 0.6 % (0-6); HEMATOCRIT 30.1 % (36.0-47.0); HEMOGLOBIN 9.1 g/dL (12.0-15.5); LYMPHOCYTES % (AUTO) 50.4 % (13-45); MEAN CORPUSCULAR HEMOGLOBIN 18.7 pg (27.0-33.4); MEAN CORPUSCULAR HGB CONC 30.3 g/dL (32.0-36.0); MONOCYTES % (AUTO) 7.6 % (3-13); PLATELET COUNT 206 10^3/uL (150-450); RED BLOOD COUNT 4.89 10^6/uL (3.72-5.28); RED CELL DISTRIBUTION WIDTH 20.1 % (11.5-14.0); SEGMENTED NEUTROPHILS % (AUTO) 40.9 % (42-78); TOTAL CELLS COUNTED % (AUTO) 100 %
[2020-11-05 18:20] LABS: ALBUMIN 3.5 g/dL (3.5-5.0); ALKALINE PHOSPHATASE 97 U/L (38-126); ANION GAP 5 (5-19); ASPARTATE AMINO TRANSFERASE 126 U/L (14-36); BILIRUBIN,DIRECT 0.2 mg/dL (0.0-0.4); BILIRUBIN,TOTAL 0.4 mg/dL (0.2-1.3); BLOOD UREA NITROGEN 2 mg/dL (7-20); CALCIUM 9.2 mg/dL (8.4-10.2); CARBON DIOXIDE 28 mmol/L (22-30); CHLORIDE 105 mmol/L (98-107); CREATINE KINASE 46 U/L (30-135); GLUCOSE 97 mg/dL (75-110); POTASSIUM 3.6 mmol/L (3.6-5.0)
[2020-11-05 18:27] LABS: MEAN CORPUSCULAR VOLUME 62 fl (80-97)
[2020-11-05 18:31] LABS: ANISOCYTOSIS 2+; OVALOCYTES SLIGHT; PLATELET COMMENT ADEQUATE; POIKILOCYTOSIS 1+; TARGET CELLS 1+; TEAR DROP CELLS SLIGHT
[2020-11-05 18:32] LABS: CREATINE KINASE MB 0.47 ng/mL (<4.55); TROPONIN I < 0.012 ng/mL
[2020-11-05] MEDS ORDERED: LABETALOL HCL INJ 20 MG/4 ML DISP.SYRIN IV ONE (21:54)
--- NOTE | 2020-11-05 21:54 | ER Document Report ---
ED Cardiac - General Chief Complaint: Palpitations Stated Complaint: CHEST PAIN Time Seen by Provider: 11/05/20 15:40 Primary Care Provider: CHRISTAL ROSADO MD [Primary Care Provider] - Follow up as needed Mode of Arrival: Ambulatory Information source: Patient Notes: ED Medical Screen ([facility] ) - General Chief Complaint: Chest Pain Stated Complaint: CHEST PAIN Time Seen by Provider: 11/05/20 15:40 Primary Care Provider: CHRISTAL ROSADO MD [Primary Care Provider] - Follow up as needed TRAVEL OUTSIDE OF THE [place] IN LAST 30 DAYS: No - HPI Notes: 11/05/20 15:47 44-year-old female with a history of hypertension presents to the emergency room today for chest states denies that radiates to her back that started around 730 this morning with shortness of breath that has become progressively worse. Patient states she woke up because she had to urinate, she felt the chest pressure, she checked her blood pressure and it was 200/119, which made her nervous. Patient states that she has had palpitations since before , has not had it checked out by a medical provider. Patient smokes 2 packs a day for last 20 years, she states she has had shortness of breath for the last 3 months but since her chest pain started has become worse. Denies any nausea, vomiting. Last menstrual cycle 10/15/2020. I have greeted and performed a rapid initial assessment of this patient. A comprehensive ED assessment and evaluation of the patient, analysis of test results and completion of the medical decision making process will be conducted by additional ED providers. PHYSICAL EXAMINATION: GENERAL: Well-appearing, well-nourished and in no acute distress. HEAD: Atraumatic, normocephalic. EYES: Pupils equal round extraocular movements intact, conjunctiva are normal. NECK: Normal range of motion CV: Tachycardia LUNGS: No respiratory distress MY NOTES 44-year-old black female arrives by POV with chief complaint of having chest pain and tachycardia and shortness of breath for the last several days. Her blood pressure is also high. She has had a weight loss of close to 30 pounds over the last year. Her TSH is less than 0.01 her heart rate is around 107. 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 Patient reports she does smoke cigarettes and does marijuana and drinks alcohol. TRAVEL OUTSIDE OF THE [place] IN LAST 30 DAYS: No - HPI Patient complains to provider of: Chest pain, Palpitations, Shortness of breath Use of: Alcohol Was the onset of pain: Sudden Is the pain a: New problem Chest pain location: Substernal - Related Data Allergies/Adverse Reactions: morphine [Morphine] Allergy (Verified 09/01/18 15:50) tramadol [Tramadol] Adverse Reaction (Verified 09/01/18 15:50) tramadol HCl [From Ultram] Adverse Reaction (Verified 09/01/18 15:50) Home Medications: bp med Past Medical History - Social History Smoking Status: Current Every Day Smoker Chew tobacco use (# tins/day): No Frequency of alcohol use: Heavy Drug Abuse: Marijuana Family History: Arthritis, CAD, DM, Hyperlipidemia, Hypertension, Thyroid Disfunction Pulmonary Medical History: Reports: Hx Bronchitis Neurological Medical History: Reports: Hx Migraine Renal/ Medical History: Reports: Hx Kidney Stones. Denies: Hx Peritoneal Dialysis GI Medical History: Reports: Hx Gastroesophageal Reflux Disease Psychiatric Medical History: Reports: Hx Anxiety, Hx Depression Past Surgical History: Reports: Hx Abdominal Surgery - inguinal left hernia, Hx Section - x1, Hx Gynecologic Surgery - btl, Hx Inguinal Hernia, Hx Neurologic Surgery - pituitary tumor non cancer, Hx Oral Surgery, Hx Tubal Ligation - Immunizations Immunizations up to date: No Hx Diphtheria, Pertussis, Tetanus Vaccination: Yes Review of Systems - Review of Systems Constitutional: See HPI, Weakness, Weight loss EENT: No symptoms reported Cardiovascular: See HPI, Chest pain, Palpitations, Heart racing Respiratory: No symptoms reported Gastrointestinal: No symptoms reported Genitourinary: No symptoms reported Female Genitourinary: No symptoms reported Musculoskeletal: No symptoms reported Skin: No symptoms reported Hematologic/Lymphatic: No symptoms reported Neurological/Psychological: No symptoms reported Physical Exam - Vital signs Vitals: Temp Pulse Resp BP Pulse Ox 98.6 F 106 H 20 186/114 H 100 11/05/20 14:47 11/05/20 14:47 11/05/20 14:47 11/05/20 14:47 11/05/20 14:47 Interpretation: Hypertensive, Tachycardic - General General appearance: Appears well, Alert - HEENT Head: Normocephalic, Atraumatic Eyes: Normal Pupils: PERRL Ears: Normal Sinus: Normal Nasal: Normal Mouth/Lips: Caries - Diffuse dental caries and malformation to the gumline. Mucous membranes: Dry Pharynx: Normal Neck: Thyromegally - Respiratory Respiratory status: No respiratory distress Chest status: Nontender Breath sounds: Normal Chest palpation: Normal - Cardiovascular Rhythm: Tachycardia Heart sounds: Normal auscultation Murmur: No - Abdominal Inspection: Normal Distension: No distension Bowel sounds: Normal Tenderness: Nontender Organomegaly: No organomegaly - Rectal Hemorrhoids: Other - deferred - Genitourinary Bimanuel exam: Other - deferred - Back Back: Normal, Nontender - Extremities General upper extremity: Normal inspection, Nontender, Normal color, Normal ROM, Normal temperature General lower extremity: Normal inspection, Nontender, Normal color, Normal ROM, Normal temperature, Normal weight bearing. No: Zeina's sign - Neurological Neuro grossly intact: Yes Cognition: Normal Orientation: AAOx4 Mamou Coma Scale Eye Opening: Spontaneous Mamou Coma Scale Verbal: Oriented Simeon Coma Scale Motor: Obeys Commands Mamou Coma Scale Total: 15 Speech: Normal Motor strength normal: LUE, RUE, LLE, RLE Sensory: Normal - Psychological Associated symptoms: Normal affect, Normal mood - Skin Skin Temperature: Warm Skin Moisture: Dry Skin Color: Normal Course - Vital Signs Vital signs: Temp Pulse Resp BP Pulse Ox 98.6 F 106 H 25 H 174/111 H 100 11/05/20 14:47 11/05/20 14:47 11/05/20 22:31 11/05/20 22:31 11/05/20 22:04 - Laboratory Results Result Diagrams: 11/05/20 17:20 11/05/20 17:20 Laboratory Results Interpreted: 11/05/20 11/05/20 11/05/20 17:20 17:20 17:20 Hgb 9.1 L Hct 30.1 L MCV 62 L MCH 18.7 L MCHC 30.3 L RDW 20.1 H Lymph % (Auto) 50.4 H Seg Neutrophils % 40.9 L BUN 2 L AST 126 H ALT 67 H TSH < 0.01 L Critical Laboratory Results Reviewed: Yes Attending or Supervising Physician who Reviewed Labs: BRENTON ATKINSON JR Radiology Results Critical Radiology Results Reviewed: Yes Attending or Supervising Physician who Reviewed Radiology: BRENTON ATKINSON JR - EKG Interpretation by Me EKG shows normal: Sinus rhythm Rate: Tachycardia Rhythm: NSR - Heart rate at 112 sinus tachycardia with left atrial abnormality and probable left ventricular hypertrophy. There was no ST elevation no ST depression no T wave depression no T wave elevation and this EKG was read by myself and I agree also with the EKG machine findings. Critical Care Note - Critical Care Note Comments: I discussed this case with Dr. Luu at approximately 2235 and I also discussed the patient's findings labs and x-rays with patient herself and she appears to understand. Advised following up with correctional sergeant personal doctor and with Dr. Luu in his office. Repeat blood pressure was 151/91 at 2400 hrs. Discharge - Discharge Clinical Impression: Tachycardia, Thyroid disease Hypertension Qualifiers: Hypertension type: unspecified Qualified Code(s): I10 - Essential (primary) hypertension Condition: Stable Disposition: HOME, SELF-CARE Additional Instructions: I advise you follow-up with Dr. Luu information assurance manager; call his office tomorrow also follow-up with your personal doctor and with correctional sergeant of choice. These will be an formerly [facility] like [place] or [place] or [place] or [employer]. Prescriptions: Metoprolol Tartrate [Lopressor 25 mg Tablet] 12.5 mg PO Q12 #30 tab Referrals: CHRISTAL ROSADO MD [Primary Care Provider] - Follow up as needed
[2020-11-05] MEDS ORDERED: NORMAL SALINE 1000 ML 1,000 ML IV ONE (21:55)
[2020-11-05] MEDS ORDERED: LORAZEPAM INJ 2 MG/1 ML VIAL IV ONE (22:18)
[2020-11-06 00:15] VITALS: BP 151/91
--- NOTE | 2020-11-06 00:44 | EKG REPORT ---
SEVERITY:- ABNORMAL ECG - SINUS TACHYCARDIA LEFT ATRIAL ABNORMALITY PROBABLE LEFT VENTRICULAR HYPERTROPHY : Confirmed by: Becca Parrish 06-Nov-2020 00:43:21
== END 2020-11-06 00:25 | disposition home or self-care (01) ==
LOC: ER 14:32
DX: R00.0 Tachycardia, unspecified (principal); E07.9 Disorder of thyroid, unspecified; R07.9 Chest pain, unspecified; R06.02 Shortness of breath; R53.1 Weakness; F17.210 Nicotine dependence, cigarettes, uncomplicated; I10 Essential (primary) hypertension; Z88.6 Allergy status to analgesic agent; Z87.442 Personal history of urinary calculi
CPT/HCPCS: 93005; 99285; 96361; 96374; 96375; 36415; 82553; 82550; 84443; 85025; 80053; 84484; 71045; 93010; J3490; J2060; J7030